=== PATIENT | female | born 1980 | race Caucasian/White ===

== ENCOUNTER 2025-02-05 14:12 | Emergency (ER) | payer OTHER ==
[~2025-02-05] VITALS: Ht 154.9 cm; Wt 54.5 kg
[2025-02-05 14:40] VITALS: TEMP 98.6
[2025-02-05] MEDS: KETOROLAC TROMETH 60MG/2ML VIAL IM ONE (14:45)
--- NOTE | 2025-02-05 14:51 | ED.PDOC ---
History of Present Illness HPI Comments 44-year-old female presents with niece for chief complaint of right lower leg pain and redness. Patient endorses an onset of symptoms following recent 2 hour flight, yesterday. Patient reports on flying in from [facility] in arriving to airport at 1700 then. Pain radiates to her knee and thigh. No endorsed recent injuries or trauma to right leg in the past. Only pertinent history of recent right knee vascular surgery. She denies having any shortness of breath, chest pain, right leg swelling, or further symptoms. Chief Complaint: Lower Extremity Time Seen by MD: 14:20 Reviewed Notes: Nurses Notes, Medications, Allergies Allergies: Coded Allergies: NO KNOWN ALLERGIES (Unverified , 02/05/25) Information Source: Patient Mode of Arrival: Ambulatory Severity: Moderate Timing: Hours Duration: Since onset Prehospital treatment: None Past Medical History PAST MEDICAL HISTORY: Denies Surgical History (Other): Right knee surgery CASE SPECIALIST History: No Pertinent CASE SPECIALIST History Social History Smoker: Non-Smoker Alcohol: Denies ETOH Use Drugs: Denies Drug Use Lives In: Home All Other Systems: Reviewed and Negative (Comprehensive review of systems are negative unless otherwise stated in HPI) Physical Exam General Appearance: Moderate Distress HEENT: Normal ENT Inspection, Pharynx Normal, TMs Normal Neck: Full Range of Motion, Non-Tender, Normal, Normal Inspection Respiratory: Chest Non-Tender, Lungs Clear, No Accessory Muscle Use, No Respiratory Distress, Normal Breath Sounds Cardiovascular: No Edema, No JVD, No Murmur, No Gallop, Normal Peripheral Pulses, Regular Rate/Rhythm Breast Exam: Deferred Gastrointestinal: No Organomegaly, Non Tender, No Pulsatile Mass, Normal Bowel Sounds, Soft Genitalia: Deferred Pelvic: Deferred Rectal: Deferred Extremities: No calf tenderness, Normal capillary refill, Normal inspection, Normal range of motion, Non-tender, No pedal edema Musculoskeletal : Apperance: Normal Neurologic: Alert, hide curer II-XII nml as Tested, No Motor Deficits, Normal Affect, Normal Mood, No Sensory Deficits Cerebellar Function: Normal Reflexes: Normal Skin: Dry, Normal Color, Warm Peripheral Pulses: 3+ Radial (R), 3+ Radial (L) Lymphatic: No Adenopathy Was a procedure done? Was a procedure done?: No Differential Dx Considerations may include: DVT, cellulitis, sprain, among others X-Ray, Labs, Meds, VS Vital Signs Date Time Temp Pulse Resp B/P (MAP) Pulse Ox O2 Delivery O2 Flow Rate FiO2 02/05/25 15:30 103 16 156/93 (114) 99 02/05/25 15:12 103 02/05/25 15:00 90 22 151/92 (111) 98 02/05/25 14:53 Room Air* 0 21 02/05/25 14:40 98.6 106 11 143/91 (108) 99 98.6 02/05/25 14:13 98.6 117 18 131/95 98 98.6 Current Medications Medications (Trade) Dose Ordered Sig/Charles Route Start Time Stop Time Status Last Admin Ketorolac Tromethamine (Toradol Injection) 60 mg ONCE ONCE IM 02/05/25 14:45 02/05/25 14:46 DC 02/05/25 14:45 Hydromorphone HCl (Dilaudid Tablet) 1 mg ONCE ONCE PO 02/05/25 16:15 02/05/25 16:16 DC 02/05/25 16:15 [place] [id number] Ph: [phone] DIAGNOSTIC IMAGING Diagnostic Imaging Report : [id number] Signed PATIENT: GERA CHEEMA ACCT: [id number] UNIT: [id number] : 1980 LOC: ER ROOM / BED: / AGE / SEX: 44 / F ADM STATUS: REG ER SERVICE [id number] ORDERING PHYSICIAN: LAURITA SHAW MD PROCEDURE(s): RLDVT - RT Lower DVT REASON: dvt ORDER NUMBER(s): [id number], ACCESSION NUMBER(s): [id number] Procedure: US RT Lower DVT Study Date and Requested Time: 02/05/2025 03:06 PM History: dvt Comparison: None Technique: Multiple high resolution hylton-scale images with and without compression obtained of the right lower extremity veins, including the common femoral vein, deep femoral vein, proximal mid and distal superficial femoral vein, and popliteal vein. Additional limited images of the greater saphenous vein also obtained. Augmentation performed as indicated. Color and spectral doppler flow images obtained as indicated. Findings: No visible intraluminal venous thrombus. No evidence of incompressibility or abnormal color or spectral Doppler flow visualized in the right lower extremity veins including, the common femoral vein, deep femoral vein, proximal mid and distal superficial femoral vein, and popliteal vein. Greater saphenous vein grossly unremarkable. Impression: No sonographic evidence of right lower extremity deep venous thrombosis. ATED BY: SHANITA VALLE DO DICTATED DATE/TIME: 02/05/251517 SIGNED BY: SHANITA VALLE DO SIGNED DATE/TIME: 02/05/251517 CC: Patient alert. Came in because of right lower extremity pain. No discoloration. Vitals stable. Was given pain medication. [place] extremities. No leg swelling. Ultrasound reviewed does not reveal any acute process. Saturation pristine on room air. Explained to the patient. Was told to follow up with her primary care physician. Was told to come back if there is any problem. Time of 1ST Reevaluation: 14:50 Reevaluation 1ST: Unchanged Patient Education/Counseling: Diagnosis, Treatment, Need For Follow Up Family Education/Counseling: Diagnosis, Treatment, Need For Follow Up SEPSIS Sepsis Screen Date sepsis recognized/suspect: Feb 05, 2025 Time Sepsis recognized/suspect: 1416 Recent Procedure: No On Antibiotic Therapy: No Respiratory Rate >20: No Heart Rate >90: Yes Temp<36 C (96.8 F) or >38.3 C: No SBP <90 or MAP <65 mmHG: No New Acute Mental Status Change: No Is the patient on CPAP, BIPAP,: No Physician Orders Electrocardigram (02/05/25 14:19) Rt Lower Dvt (02/05/25 14:31) Vital Signs Date Time Temp Pulse Resp B/P (MAP) Pulse Ox O2 Delivery O2 Flow Rate FiO2 02/05/25 15:30 103 16 156/93 (114) 99 02/05/25 15:12 103 02/05/25 15:00 90 22 151/92 (111) 98 02/05/25 14:53 Room Air* 0 21 02/05/25 14:40 98.6 106 11 143/91 (108) 99 98.6 02/05/25 14:13 98.6 117 18 131/95 98 98.6 Medications Medications Dose Ordered Sig/Charles Route Start Time Stop Time Status Last Admin Dose Admin Hydromorphone HCl 1 mg ONCE ONCE PO 02/05/25 16:15 02/05/25 16:16 DC 02/05/25 16:15 Ketorolac Tromethamine 60 mg ONCE ONCE IM 02/05/25 14:45 02/05/25 14:46 DC 02/05/25 14:45 Departure 1 Departure Time of Disposition: 16:29 Impression: Primary Impression: Chronic pain syndrome Disposition: HOME / SELF CARE / HOMELESS Condition: Good Discharged With: Self Critical Care Note Critical Care Time?: No Stability Stability form required: No Heart Score Heart Score: Heart Score Response (Comments) Value History N/A 0 EKG N/A 0 Age N/A 0 Risk Factors N/A 0 Troponin N/A 0 Total 0 I personally scribed for LAURITA SHAW MD ([email or web address]) on 02/05/25 at 14:51. Electronically submitted by Rigoberto Torres ([email or web address]). I personally scribed for LAURITA SHAW MD ([email or web address]) on 02/05/25 at 16:39. Electronically submitted by Rigoberto Torres ([email or web address]). LAURITA SHAW MD Feb 05, 2025 14:51
--- NOTE | 2025-02-05 15:20 | DVH ---
Procedure: US RT Lower DVT Study Date and Requested Time: 02/05/2025 03:06 PM History: dvt Comparison: None Technique: Multiple high resolution hylton-scale images with and without compression obtained of the ri t lower extremity veins, including the common femoral vein, deep femoral vein, proximal mid and dis bernie superficial femoral vein, and popliteal vein. Additional limited images of the greater saphenous vein also obtained. Augmentation performed as indicated. Color and spectral doppler flow images obtai jf as indicated. Findings: No visible intraluminal venous thrombus. No evidence of incompressibility or abnormal color or spectr al Doppler flow visualized in the right lower extremity veins including, the common femoral vein, richelle p femoral vein, proximal mid and distal superficial femoral vein, and popliteal vein. Greater sapheno us vein grossly unremarkable. Impression: No sonographic evidence of right lower extremity deep venous thrombosis.
[2025-02-05 15:30] VITALS: BP 156/93; PULSE 103; RESP 16; O2SAT 99
--- NOTE | 2025-02-05 18:36 | ECG ---
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
== END 2025-02-05 16:43 | disposition home or self-care (01) ==
LOC: ER 14:12
DX: G89.4 Chronic pain syndrome (principal); Z86.718 Personal history of other venous thrombosis and embolism
CPT/HCPCS: 93005; 93971; 96372; 99285; J1885